=== PATIENT | male | born 1980 | race Caucasian/White ===

== ENCOUNTER 2023-08-01 19:55 | Emergency (ER) | payer MEDICAID, SELFPAY ==
[2023-08-01 19:56] VITALS: BP 140/91; PULSE 79; RESP 16; TEMP 36.7; O2SAT 98; BMI 25.0
--- NOTE | 2023-08-01 20:19 | XR_ITS ---
PROCEDURE INFORMATION: Exam: XR Right Hand Exam date and time: 08/01/2023 8:15 PM Age: 42 years old Clinical indication: Swelling; Right; Patient HX: States he had some metal stuck in R hand from job at [employer] approx 2 weeks ago; Additional info: Thenar swelling, works with metal TECHNIQUE: Imaging protocol: Radiologic exam of the right hand. Views: 3 or more views. COMPARISON: No relevant prior studies available. FINDINGS: Bones/joints: Osseous alignment is normal. No acute fracture. No significant arthritic change. Soft tissues: Soft tissues appear unremarkable. No radiodense foreign body evident. IMPRESSION: No acute abnormality
--- NOTE | 2023-08-01 20:19 | HMH.EDGENADL ---
Discharge Plan Disposition Patient Disposition: Home, Self-Care Prescriptions Prescriptions: New sulfamethoxazole-trimethoprim [Bactrim DS] 800-160 mg tablet 1 tab PO BID 7 Days Qty: 14 0RF Referrals Follow up/Referrals: Brandy Clarke [Primary Care Provider] - See instructions Activity Restrictions/Add. Instructions Additional Instructions/Restrictions: At this time it was felt you are safe to be discharged home. If new or worsening symptoms please do not hesitate to return the emergency department. If symptoms persist please follow-up with your family doctor as you are able. Please take your medication as prescribed. Clinical Impressions Clinical Impression: Puncture wound, hand, Cellulitis Instructions Patient Instructions: DI for Skin Abscess Discharge ED Provider: Ezio Ervin General Adult HPI General Chief complaint: Skin/Abscess/Foreign Body Stated complaint: right hand wounds possibly infected Time Seen by Provider: 08/01/23 20:16 Mode of Arrival: Ambulatory Source of Information: Patient Limitations: No Limitations Description of Symptoms (Recalled from ER Triage Doc. by RN): pt c/o right hand pain (palm) r/t injurt at work 2-3 weeks ago, denies previous medical tx, stated it looked and felt ok before but now its been hurting and having some pus for past 3 days History of Present Illness HPI narrative: Patient is a 42-year-old right-handed male who presents emergency department for evaluation of hand swelling. History is obtained by patient at bedside. 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 Since then patient has had some healing of the wound however due to redness he presents here for continued evaluation. No other acute complaints at this time. Tdap not up-to-date. Related Data Previous Rx's Medication Instructions Recorded sulfamethoxazole 800 1 tab PO BID 7 days #14 tabs 08/01/23 mg-trimethoprim 160 mg tablet (Bactrim DS) Allergies Allergy/AdvReac Type Severity Reaction Status Date / Time No Known Allergies Allergy Verified 08/01/23 20:35 [facility] Disclaimer: The information contained in this section may have been updated after the patient was seen, as this information can be updated by other users. Social History Smoking Status: Current every day smoker alcohol intake: never current occupational status: employed Travel in the last 8 weeks: None ROS Obtained: Yes Systems reviewed as appropriate & no additional complaints except as documented Physical Exam General General appearance: alert and in no apparent distress Head Head exam: atraumatic and normocephalic Eye Eye exam: Present PERRL and EOMI ENT ENT exam: Present mucous membranes moist Neck Neck exam: Present normal inspection Chest Chest inspection: Present normal inspection and symmetric chest wall rise Respiratory Respiratory exam: Absent respiratory distress Cardiovascular Cardiovascular exam: Present regular rate and normal rhythm Extremities Exam Extremities exam: Present other (3 punctate subcentimeter wounds over the right thenar eminence with underlying erythema and tenderness. 1 punctate wound over the volar base of the right pinky they are currently scabbed. No circumferential swelling of the fingers, distal capillary refill preserved. 5 out of 5 strength at the abbasi) Neurological Exam Neurological exam: Present alert Psychiatric Psychiatric exam: Present normal affect Skin Skin exam: Present warm and dry Medical Decision Making Jae Inquiry Pt receiving controlled substance: No Vital Signs: 08/01/23 19:56 Temperature 98.1 F Temperature Source Oral Pulse Rate [Left Radial] 79 Respiratory Rate 16 Blood Pressure [Right Arm] 140/91 H Blood Pressure Mean [Right Arm] 107 Blood Pressure Source [Right Arm] Automatic Cuff Blood Pressure Position [Right Arm] Sitting 02 Sat
[2023-08-01 21:07] VITALS: BP 122/82; PULSE 88; RESP 16; TEMP 36.7; O2SAT 99
== END 2023-08-01 21:09 | disposition home or self-care (01) ==
PROVIDERS: Emergency Provider Emergency Medicine; PCP Emergency Medicine
DX: L03.113 Cellulitis of right upper limb (principal); S61.431A Puncture wound without foreign body of right hand, initial encounter; F17.210 Nicotine dependence, cigarettes, uncomplicated; W45.8XXA Other foreign body or object entering through skin, initial encounter
CPT/HCPCS: 73130; 90715; 96372; 99283

== ENCOUNTER 2024-05-18 12:27 | Emergency (ER) | payer MEDICAID, SELFPAY ==
[2024-05-18 12:28] VITALS: BP 149/87; PULSE 67; RESP 20; TEMP 36.7; O2SAT 98; BMI 25.0
[2024-05-18 12:42] VITALS: BMI 26.6
--- NOTE | 2024-05-18 12:43 | XR_ITS ---
FINAL REPORT CLINICAL HISTORY: RIGHT RIB MID POSTERIOR PAIN. FINDINGS: A single view of the chest with 3 views of the right ribs were obtained. There is no acute cardiopulmonary process. No pneumothorax is identified. No displaced rib fracture identified. IMPRESSION: No acute process. Reviewed, Interpreted and Dictated by Meliton Arzate III, MD Transcribed by Lilly Acosta Authenticated and [facility]
[2024-05-18 12:53] LABS: Microscopic, Urine URINE MICROSCOPIC (MICROSCOPIC)
[2024-05-18 12:58] LABS: Appearance,Urine CLEAR (Clear); Blood, Urine Negative (Negative); Color,Urine YELLOW (Yellow); Glucose,Urine (UA) Negative (Negative); Ketones,Urine Negative (Negative); Leukocyte Esterase,Urine Negative (Negative); Nitrate,Urine Negative (Negative); PH,Urine 7.5 (5.0-8.5); Protein,Urine Negative (Negative)
[2024-05-18 13:00] VITALS: BP 138/90; PULSE 58; O2SAT 98
[2024-05-18 13:12] LABS: Bilirubin,Urine 1+ (Negative)
[2024-05-18 13:13] LABS: Bacteria,Urine Trace /lpf; RBC,Urine Occasional #/hpf (0-3); Squamous Epithelial Cell,Urine Occasional #/hpf (0-5); WBC,Urine Occasional #/hpf (0-3)
[2024-05-18] MEDS: LIDOCAINE 5% TRANSDERMAL PATCH 1 EACH TP (13:22)
--- NOTE | 2024-05-18 13:25 | HMH.EDGENADL ---
Discharge Plan Disposition Patient Disposition: Home, Self-Care Prescriptions Prescriptions: New lidocaine 5 % adhesive patch,medicated 1 patch topical DAILY Qty: 30 0RF Rx Instructions: leave on most painful area for up to 12 hrs No Action sulfamethoxazole-trimethoprim [Bactrim DS] 800-160 mg tablet 1 tab PO BID 7 Days Qty: 14 0RF Referrals Follow up/Referrals: Brandy Clarke MD [Primary Care Provider] - See instructions Activity Restrictions/Add. Instructions Additional Instructions/Restrictions: Follow-up with your family doctor as needed for this visit to the emergency department. Lidocaine patch daily. Take Tylenol 1000 mg every 6 hours (4 times daily) and ibuprofen 400 mg every 6 hours (4 times daily) as needed with food and water to prevent GI upset and kidney damage. Clinical Impressions Clinical Impression: Chest wall pain Instructions Patient Instructions: DI for Low Back Pain Print Language Print Language: Sudanese Discharge ED Provider: Andrea Pinto General Adult HPI General Chief complaint: Back Pain/Injury Stated complaint: AO 05/16/24, inj to right shoulder blade Time Seen by Provider: 05/18/24 12:46 History of Present Illness HPI narrative: Please note that above description of symptoms, in this electronic medical record under categorization of recalled from ER triage doctor by RN are reflective of an initial nursing assessment, however, is not reflective of my full history and physical exam that was personally taken and clarified. Consequentially, this preceding description of symptoms, which may include the patient's categorized chief complaint in the EMR, do not reflect my personal clinical impression, and the ultimate description of history of present illness and patient stated complaints should be deferred to this section of the note. Unless stated otherwise or congruent with this section of the note, additional signs, symptoms, or incongruence should be interpreted as inaccurate with my clinical impression. Related Data Previous Rx's ?Medication ?Instructions ?Recorded sulfamethoxazole 800 1 tab PO BID 7 days #14 tabs 08/01/23 mg-trimethoprim 160 mg tablet (Bactrim DS) lidocaine 5 % topical patch 1 patch topical DAILY #30 ea 05/18/24 Allergies Allergy/AdvReac Type Severity Reaction Status Date / Time No Known Allergies Allergy Verified 08/01/23 20:35 [facility] Disclaimer: The information contained in this section may have been updated after the patient was seen, as this information can be updated by other users. Social History (Updated 08/01/23 @ 21:01 by Ezio Ervin MD) Smoking Status: Current every day smoker alcohol intake: never current occupational status: employed Travel in the last 8 weeks: None ROS Obtained: Yes All systems reviewed & no additional complaints except as documented Physical Exam General General appearance: alert Head Head exam: atraumatic and normocephalic Eye Eye exam: Present normal appearance, PERRL and EOMI Neck Neck exam: Present normal inspection, full ROM and trachea midline Chest Chest inspection: Present tenderness (Posterior chest wall tenderness right side just inferior to scapula) Respiratory Respiratory exam: Absent respiratory distress, wheezes, stridor, accessory muscle use or prolonged expiratory phase Cardiovascular Cardiovascular exam: Present other (Pulses equal symmetric in upper and lower extremities) Abdominal Exam Abdominal exam: Present soft; Absent distention, tenderness or pulsatile mass Extremities Exam Extremities exam: Absent edema Neurological Exam Neurological exam: Present alert, oriented X3 and CN II-XII intact; Absent motor sensory deficit Skin Skin exam: Present warm and dry; Absent diaphoresis or erythema Medical Decision Making Medical Records Medical records reviewed: Yes I reviewed the patient's medical records. Jae Inquiry Pt receiving controlled substance: No Jae was queried for this patient: No Vital Signs: 05/18/24 12:28 05/18/24 13:00 05/18/24 13:54 Temperature 98.0 F Temperature Source Oral Pulse Rate 58 L Pulse Rate [Right] 67 Respiratory Rate 20 Blood Pressure 138/90 Blood Pressure [149/87] 149/87 H Blood Pressure Mean [149/87] 107 Blood Pressure Source [149/87] Automatic Cuff 02 Sat by Pulse Oximetry 98 98 98 Oxygen Delivery Method Room Air Room Air Room Air 05/18/24 14:00 Temperature Temperature Source Pulse Rate 56 L Pulse Rate [Right] Respiratory Rate Blood Pressure 162/99 H Blood Pressure [149/87] Blood Pressure Mean [149/87] Blood Pressure Source [149/87] 02 Sat by Pulse Oximetry 98 Oxygen Delivery Method Lab Data Lab Results 05/18/24 12:50: Urine Color Yellow, Urine Appearance Clear, Urine pH 7.5, Ur Specific [place] 1.020, Urine Protein Negative, Urine Glucose (UA) Negative, Urine Ketones Negative, Urine Blood Negative, Urine Nitrate Negative, Urine Bilirubin 1+ A, Urine Urobilinogen 1.0, Ur Leukocyte Esterase Negative, Urine RBC Occasional, Urine WBC Occasional, Ur Squamous Epith Cells Occasional, Urine Bacteria Trace Orders (Tests/Meds): ED MEDICATIONS Discontinued Medications Generic Name Dose Route Start Last Admin Trade Name Katherine PRN Reason Stop Dose Admin Lidocaine 1 each 05/18/24 13:14 05/18/24 13:22 Lidocaine 5% Transdermal Patch TP 05/18/24 13:15 1 each ONCE ONE Administration ORDERS Category Date Time Status XR ribs RT min 3V w CXR1V Stat Exams 05/18/24 12:43 Completed UA [Urinalysis and Microscopic] Stat Lab 05/18/24 12:50 Completed Medical Decision Narrative: 43-year-old male history of bipolar disorder no anticoagulation presenting with back pain. Patient states that he was below 10 foot ladder when the ladder was moved, and aluminum right angle fell from the top ladder hit him in the back. No loss of consciousness. Patient states it feels just like it did when he had a broken rib. Has not taken anything for the pain, came for further evaluation. No shortness of breath, nausea, vomiting, any other complaints. Was obtained via conversation with patient. On arrival, patient hemodynamically stable, alert, oriented x4, appropriate, GCS 15, moving all extremities spontaneously, pupils equal and reactive to light. Full physical exam performed and significant for atraumatic right posterior chest wall, but tenderness just inferior to the scapula. Bilateral breath sounds, otherwise normal exam. Differential includes soft tissue injury, rib fracture, pneumothorax, among others. Patient placed on continuous cardiac monitoring and continuous pulse ox with initial blood pressure 138/90, heart rate 58, saturation 98% on room air. Independent rotation of chest x-ray and urine demonstrates no acute bony abnormality or pneumothorax in the chest. Urinalysis unremarkable. Patient given lidocaine patch for pain. On reevaluation, patient feeling a little better, given history, physical exam, workup, this most likely represents benign MSK pain in the setting of minor trauma. Because patient at baseline without signs or symptoms of clinical decompensation, deemed appropriate for discharge. Results were relayed to patient who voiced understanding and were agreeable to outpatient management and follow up. I discussed my clinical impression with patient and answered all questions. At this time, the evidence for any other entities in the differential is insufficient to warrant any further testing or ED observation. This was explained as well. Advisory was given that persistent or worsening symptoms require further evaluation. I confirmed the understanding of this discussion. Cooker Tender disclaimer Much of this encounter note is an electronic labor relations specialist spoken language to printed text. Electronic labor relations specialist of the spoken language may permit errors. Although I have reviewed the note, some errors may still exist. Critical Care Critical Care Time Critical Care Time: No
[2024-05-18 13:54] VITALS: O2SAT 98
[2024-05-18 14:00] VITALS: BP 162/99; PULSE 56; O2SAT 98
[2024-05-18 14:34] VITALS: BP 162/100; PULSE 52; RESP 18; TEMP 36.6; O2SAT 98
== END 2024-05-18 14:41 | disposition home or self-care (01) ==
PROVIDERS: Emergency Provider Emergency Medicine; PCP Emergency Medicine
DX: F17.210 Nicotine dependence, cigarettes, uncomplicated; M54.6 Pain in thoracic spine; W11.XXXA Fall on and from ladder, initial encounter
CPT/HCPCS: 71101; 81001; 99283

== ENCOUNTER 2024-06-04 13:37 | Emergency (ER) | payer OTHER, SELFPAY ==
[2024-06-04] VITALS (7 sets, daily range): BP systolic 129–150; BP diastolic 83–106; PULSE 77–90; RESP 16–18; TEMP 36.7; O2SAT 99–100; BMI 27.3
--- NOTE | 2024-06-04 13:49 | CT_ITS ---
FINAL REPORT TECHNIQUE: Postcontrast images of the pelvis and extremities were performed by computed tomography. Extensive 3-D reconstruction images were performed. A CTA was performed. This study was performed with techniques to keep radiation doses as low as reasonably achievable (ALARA). Individualized dose reduction techniques using automated exposure control or adjustment of mA and/or kV according to the patient''s size were employed. CLINICAL HISTORY: Recent vascular harvesting, swell post dist thigh FINDINGS: Pelvis: The urinary bladder is unremarkable. The appendix is not identified. There is no free fluid or adenopathy. Visualized portions of the kidneys are normal. Scattered diverticula are seen of the sigmoid colon. The appendix is normal. LEFT lower extremity: There is mild atherosclerosis of the distal SFA and common femoral arteries bilaterally. Popliteal artery and trifurcation are patent. There is three-vessel runoff to the foot. Complex fluid attenuation is seen anterior to the left vastus medialis measuring 5.9 cm in craniocaudad dimension and 3.7 cm in AP dimension. IMPRESSION: Mild atherosclerosis of the distal SFA and common femoral arteries bilaterally. Intramuscular fluid collection likely due to intramuscular hematoma. Reviewed, Interpreted and Dictated by Jose Ronquillo MD Transcribed by Lilly Acosta Authenticated and [facility]
--- NOTE | 2024-06-04 13:53 | HMH.EDGENADL ---
Discharge Plan Disposition Patient Disposition: Xfer Short-Term Hosp Condition: Good Prescriptions Prescriptions: No Action citalopram 40 mg tablet 40 mg PO DAILY Patient Comments: TAKE 1 TABLET BY MOUTH ONCE DAILY quetiapine 100 mg tablet 100 mg PO DAILY Patient Comments: TAKE 1 TABLET BY MOUTH ONCE DAILY AT BEDTIME sennosides [senna] 8.6 mg Tablet 8.6 mg PO DAILY valacyclovir 500 mg Tablet 500 mg PO DAILY acetaminophen 500 mg Tablet 500 mg PO NEEDED PRN (Reason: Pain) aspirin 81 mg Tablet 81 mg PO DAILY oxycodone 5 mg Tablet 5 mg PO NEEDED PRN (Reason: Pain) methocarbamol 1,000 mg Tablet 1,000 mg PO NEEDED PRN (Reason: .) Referrals Follow up/Referrals: Brandy Clarke MD [Primary Care Provider] - See instructions Clinical Impressions Clinical Impression: Lower extremity pain, Post-operative state, Hematoma, Anemia, Thrombocytosis Print Language Print Language: Tuvaluan Discharge ED Provider: Amarilis Craig General Adult HPI <Ezio Ervin MD - Last Filed: 06/04/24 14:54> General Chief complaint: PAIN Stated complaint: sent by dr, swelling, red, hot touch L leg Time Seen by Provider: 06/04/24 13:41 History of Present Illness HPI narrative: Patient is a 43-year-old male with past medical history of recent polytrauma to his arm that was seen by me, he had an open fracture for which was transferred to tertiary care and underwent definitive care with surgeries and vascular grafting presents emergency department for evaluation of leg pain. Over the last 24 hours over his distal posterior left thigh which is the same like that he had vascular grafting from he has had increasing pain and mild swelling. With respect to his upper extremity wound there is a VAC in place and it is wrapped and managed by wound care for which he says there is oozing from the suture site that he wants to be evaluated. No new trauma, no other acute complaints at this time. Related Data Home Medications ?Medication ?Instructions ?Recorded ?Confirmed acetaminophen 500 mg tablet 500 mg PO NEEDED PRN Pain 06/04/24 06/04/24 aspirin 81 mg tablet 81 mg PO DAILY 06/04/24 06/04/24 citalopram 40 mg tablet 40 mg PO DAILY 06/04/24 06/04/24 methocarbamol 1,000 mg tablet 1,000 mg PO NEEDED PRN . 06/04/24 06/04/24 oxycodone 5 mg tablet 5 mg PO NEEDED PRN Pain 06/04/24 06/04/24 quetiapine 100 mg tablet 100 mg PO DAILY 06/04/24 06/04/24 sennosides 8.6 mg tablet (senna) 8.6 mg PO DAILY 06/04/24 06/04/24 valacyclovir 500 mg tablet 500 mg PO DAILY 06/04/24 06/04/24 Allergies Allergy/AdvReac Type Severity Reaction Status Date / Time No Known Allergies Allergy Verified 06/04/24 13:59 PFSH <Ezio Ervin MD - Last Filed: 06/04/24 14:54> [facility] Disclaimer: The information contained in this section may have been updated after the patient was seen, as this information can be updated by other users. Social History Smoking Status: Never smoker alcohol intake: never current occupational status: employed Travel in the last 8 weeks: None <Ezio Ervin MD - Last Filed: 06/04/24 14:54> ROS Obtained: Yes Systems reviewed as appropriate & no additional complaints except as documented Physical Exam <Ezio Ervin MD - Last Filed: 06/04/24 14:54> General General appearance: alert and in no apparent distress Head Head exam: atraumatic and normocephalic Eye Eye exam: Present PERRL and EOMI ENT ENT exam: Present mucous membranes moist Neck Neck exam: Present normal inspection Chest Chest inspection: Present normal inspection and symmetric chest wall rise Respiratory Respiratory exam: Present normal lung sounds bilaterally; Absent respiratory distress Cardiovascular Cardiovascular exam: Present regular rate and normal rhythm Abdominal Exam Abdominal exam: Present soft; Absent tenderness Extremities
--- NOTE | 2024-06-04 13:54 | XR_ITS ---
FINAL REPORT CLINICAL HISTORY: recent trauma s/p repair COMPARISON: None FINDINGS: 3 views of the right humerus were obtained. There is a sideplate and screws securing the common extensor, medial and lateral aspect of the distal left humerus. A sideplate and screws are also noted in the olecranon. There is no acute soft tissue abnormality. IMPRESSION: . Postoperative changes as above. Reviewed, Interpreted and Dictated by Jose Ronquillo MD Transcribed by Josey Ramos Authenticated and . [facility]
--- NOTE | 2024-06-04 13:58 | PC.NURSE ---
pt transported to radiology via wheelchair
[2024-06-04 14:15] LABS: Chloride 106 mmol/L (98-107); Potassium 4.4 mmoL/L (3.5-5.1); Sodium 137 mmol/L (136-145)
[2024-06-04 14:17] LABS: Basophils # 0.1 K/mm3 (0-0.2); Basophils % 0.8 % (0.1-2.0); Eosinophils # 0.2 K/mm3 (0.0-0.4); Eosinophils % 2.2 % (0.1-12.0); Hematocrit 30.5 % (42.0-52.0); Hemoglobin 8.8 g/dL (14.1-18.0); Lymphocytes # 1.9 K/mm3 (0.7-4.5); Lymphocytes % 24.8 % (10-50); Mean Corpuscular HGB Conc 28.9 g/dL (31.8-35.4); Mean Corpuscular Hemoglobin 28.7 pg (27.0-31.2); Mean Corpuscular Volume 99.3 fl (80-94); Mean Platelet Volume 7.5 fl (7.4-10.4); Monocytes # 0.4 K/mm3 (0.1-1.0); Monocytes % 4.7 % (1.7-9.3); Neutrophils # 5.3 K/mm3 (1.8-7.8); Neutrophils % 67.5 % (37.0-80.0); Red Blood Count 3.07 M/mm3 (4.60-6.20); Red Cell Distribution Width 16.2 % (11.5-17.5); White Blood Count 7.8 K/mm3 (4.8-10.8)
[2024-06-04 14:18] LABS: Alanine Aminotransferase 38 U/L (12-78); Albumin/Globulin Ratio 1.4 (1.1-1.8); Alkaline Phosphatase 85 U/L (38-126); Anion Gap 7.4 mEq/L (5-15); Aspartate Amino Transferase 45 U/L (17-59); Bilirubin,Total 0.4 mg/dl (0.2-1.3); Blood Urea Nitrogen 8 mg/dl (9-20); Calcium 8.6 mg/dl (8.4-10.2); Carbon Dioxide 28 mmol/L (22.0-30.0); Creatinine Clearance Estimated 160 mL/min (50-200); Estimated Glomerular Filt Rate 124 ml/min (>60); GFR (African American) 150 ML/MIN (>60); Globulin 2.8 g/dL (1.3-3.2); Glucose 91 mg/dl (74-100); Total Protein,Serum 6.8 g/dl (6.3-8.2)
[2024-06-04 14:52] LABS: Platelet Count 1107 K/mm3 (142-424)
--- NOTE | 2024-06-04 15:11 | PC.NURSE ---
patient given warm blanket, call light within reach
--- NOTE | 2024-06-04 15:41 | PC.NURSE ---
Rounded on pt. Updated on POC. No other needs voiced. Call light within reach
--- NOTE | 2024-06-04 16:11 | PC.NURSE ---
pc to 's re transfer to their facility
[2024-06-04 16:30] LABS: Basophils # 0.1 K/mm3 (0-0.2); Basophils % 0.8 % (0.1-2.0); Eosinophils # 0.2 K/mm3 (0.0-0.4); Eosinophils % 2.8 % (0.1-12.0); Hematocrit 26.5 % (42.0-52.0); Lymphocytes # 1.6 K/mm3 (0.7-4.5); Lymphocytes % 19.4 % (10-50); Mean Corpuscular HGB Conc 30.2 g/dL (31.8-35.4); Mean Corpuscular Hemoglobin 29.6 pg (27.0-31.2); Mean Corpuscular Volume 98.1 fl (80-94); Monocytes # 0.4 K/mm3 (0.1-1.0); Monocytes % 4.2 % (1.7-9.3); Neutrophils % 72.8 % (37.0-80.0); Platelet Count 873 K/mm3 (142-424); Red Cell Distribution Width 16.3 % (11.5-17.5); White Blood Count 8.3 K/mm3 (4.8-10.8)
--- NOTE | 2024-06-04 16:56 | PC.NURSE ---
pc to [facility] to give update on repeat labs
--- NOTE | 2024-06-04 17:01 | PC.NURSE ---
Pt ambulatory to the bathroom
--- NOTE | 2024-06-04 17:19 | PC.NURSE ---
REPORT CALLED TO KAYLAH ROSAS AT
== END 2024-06-04 17:45 | disposition short-term general hospital (02) ==
PROVIDERS: Emergency Medicine; Emergency Provider Emergency Medicine; PCP Emergency Medicine
DX: M79.652 Pain in left thigh (principal); S70.12XA Contusion of left thigh, initial encounter; L76.32 Postprocedural hematoma of skin and subcutaneous tissue following other procedure; D75.839 Thrombocytosis, unspecified; D64.9 Anemia, unspecified; R60.0 Localized edema; Z94.5 Skin transplant status; Y83.4 Other reconstructive surgery as the cause of abnormal reaction of the patient, or of later complication, without mention of misadventure at the time of the procedure
CPT/HCPCS: 73060; 73706; 80053; 85025; 96374; 99285; J0131; Q9967